=== PATIENT | male | born 1995 | race Asian ===

== ENCOUNTER 2018-01-07 10:24 | Day surgery (SDC) | payer OTHER, SELFPAY ==
[2018-01-07] VITALS (9 sets, daily range): BP systolic 122–138; BP diastolic 56–69; PULSE 48–75; RESP 14–18; TEMP 35.9–36.5; O2SAT 99–100; BMI 28.5
[2018-01-07] MEDS: Cefazolin 2 GM in 0.9% Normal Saline 100 ML IV (12:18)
--- NOTE | 2018-01-07 12:21 | PCM.OPRPT ---
Report of Operation Date of Procedure: 01/07/18 Pre-Operative Diagnosis: Rupture anterior cruciate ligament left knee Post-Operative Diagnosis: Rupture anterior cruciate ligament left knee Surgery/Procedure Performed:: Arthroscopic assisted anterior cruciate ligament reconstruction using hamstring tendon autograft left knee Description of Surgical Findings:: Complete rupture of anterior cruciate ligament title i paraprofessional: Harshil Rizzo title i paraprofessional: Shimon Parry Type of Anesthesia:: Spinal Anesthesiologist: Katya Grant Specimen's removed: none Estimated Blood Loss (mL): 25 Fluids Replaced: See anesthesia report Description of Procedure: Implants: Arthrex tight rope for femoral fixation, sheath an 8 mm screw for tibial fixation, 8 mm tibial and femoral tunnels Surgical indications: 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 This was confirmed via MRI. He is here today for elective reconstruction as above Procedure description: Patient was greeted in the preoperative area. Left knee was marked with a surgical marker. Preoperative antibiotics were administered. Patient was then taken or Suite 2 in a stable condition. After adequate anesthesia was obtained and airway secured the arm was placed in arthroscopic leg nixon with a tourniquet high on the thigh. The leg was then prepped and draped in usual sterile fashion. Standard anteromedial and anterolateral portals were made and diagnostic arthroscopy was performed. The patellofemoral joint was in pristine condition without any abnormalities. No loose bodies or hemarthrosis was identified in the medial or lateral gutters. Medial compartment was then entered which revealed normal pristine articular cartilage as well as normal meniscus without any tearing. The intercondylar notch was then entered which revealed the rupture of the anterior cruciate ligament. Valgus stress was then placed on the knee and the lateral compartment was entered which revealed pristine articular cartilage and normal lateral meniscus. At this point the arthroscope was removed and attention was turned to harvesting the hamstring autograft. A 6 inch Esmarch was used to exsanguinate the limb and tourniquet was inflated to approximately 300 mmHg. Incision was then made overlying the has anserine musculature. Bovie cautery was used to obtain hemostasis. Dissection was then carried down to the sartorial fascia. Sartorial fascia was split exposing the underlying gracilis and semitendinosus tendon attachments. The gracilis was approached first and this was freed up of any adhesions and attachments to the underlying semitendinosus the medial head of the gastrocnemius. Once this was freed up distally [place] drain was used to isolate the tendon and the distal aspect of the tendon was then whipstitched. It was then detached from the tibia. A tendon stripper was then used to carefully release the tendon. This was then taken to the back table by the physician certified pharmacist assistant and prepared for the graft. In similar fashion the semi-tendinosis was approached it was identified and localized distally with a Ada drain and the distal aspect was whipstitched. It was then carefully dissected off of the tibial attachment. Fascial bands were released from the medial head of the gastrocnemius and the tendon strip was then used to harvest the graft. This was also placed on the back table and prepared with the gracilis tendon for the autograft. As the tendon was being repaired for the reconstruction arthroscope was then inserted once again into the knee and a limited notchplasty was performed. Once the graft size was obtained a femoral guide was then placed to the anterolateral portal and placed at the anatomic footprint of the ACL with anticipated posterior wall of 2-3 mm. The thread cutter was then inserted through this guide 25 mm femoral tunnel was then created. The passing suture was then placed through the femoral tunnel infarct in the anterolateral portal. Tibial guide was then inserted into the anteromedial portal to identify the tibial tunnel placement. This was approximately 8 mm anterior to the PCL. Guidepin was then placed intra-articularly followed by appropriate size acorn reamer to create the tibial tunnel. The shaver was then used to remove any soft tissue surrounding the tunnel. The prepared hamstring was then quadrupled in the passing suture was then retrieved through the tibial tunnel with a ring grasper. The passing suture of the graft passing suture loop was then placed through the that was previously retrieved from the tibial tunnel and the passing suture of the graft was then passed through the tibial tunnel and femoral tunnel out the lateral aspect of the thigh. The tight rope anchor was then flipped on the lateral aspect of the femoral cortex and tension on this tightening suture did pass the graft through the tibial tunnel and seated this quite nicely into the femoral tunnel. Once this was complete soft tissue was removed from the tibial tunnel and attention was then placed in an antegrade fashion tensioning the graft is a dilator was utilized followed by placement of a nitinol wire then a tibial sheath. An interference screw was then placed in the tibial tunnel with excellent purchase. Arthroscopic confirmation of the reconstructed ACL was performed. This was probed to ensure excellent tension was obtained. At this point all instruments were removed the remaining tendons from the graft was trimmed and closure of the wounds was then performed. The assistants were integral in all portions of this procedure including patient positioning preparing the graft assisted with harvesting the graft wound closure and preparing the tunnels - Complications none - Admit VTE Documentation VTE Present on Admission: Yes VTE Mechan Device Prophylaxis: SCD's, Thigh High LONDON Kaur
[2018-01-07] MEDS: Bupiv/Epi 0.5% Mpf 30 ML Vial (12:37)
--- NOTE | 2018-01-07 12:41 | OP.PCM_ITS ---
Report of Operation Date of Procedure: 01/07/18 Pre-Operative Diagnosis: Rupture anterior cruciate ligament left knee Post-Operative Diagnosis: Rupture anterior cruciate ligament left knee Surgery/Procedure Performed:: Arthroscopic assisted anterior cruciate ligament reconstruction using hamstring tendon autograft left knee Description of Surgical Findings:: Complete rupture of anterior cruciate ligament apple sorter: Harshil Rizzo apple sorter: Shimon Parry Type of Anesthesia:: Spinal Anesthesiologist: Katya Grant Specimen's removed: none Estimated Blood Loss (mL): 25 Fluids Replaced: See anesthesia report Description of Procedure: Implants: Arthrex tight rope for femoral fixation, sheath an 8 mm screw for tibial fixation, 8 mm tibial and femoral tunnels Surgical indications: 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 This was confirmed via MRI. He is here today for elective reconstruction as above Procedure description: Patient was greeted in the preoperative area. Left knee was marked with a surgical marker. Preoperative antibiotics were administered. Patient was then taken or Suite 2 in a stable condition. After adequate anesthesia was obtained and airway secured the arm was placed in arthroscopic leg nixon with a tourniquet high on the thigh. The leg was then prepped and draped in usual sterile fashion. Standard anteromedial and anterolateral portals were made and diagnostic arthroscopy was performed. The patellofemoral joint was in pristine condition without any abnormalities. No loose bodies or hemarthrosis was identified in the medial or lateral gutters. Medial compartment was then entered which revealed normal pristine articular cartilage as well as normal meniscus without any tearing. The intercondylar notch was then entered which revealed the rupture of the anterior cruciate ligament. Valgus stress was then placed on the knee and the lateral compartment was entered which revealed pristine articular cartilage and normal lateral meniscus. At this point the arthroscope was removed and attention was turned to harvesting the hamstring autograft. A 6 inch Esmarch was used to exsanguinate the limb and tourniquet was inflated to approximately 300 mmHg. Incision was then made overlying the has anserine musculature. Bovie cautery was used to obtain hemostasis. Dissection was then carried down to the sartorial fascia. Sartorial fascia was split exposing the underlying gracilis and semitendinosus tendon attachments. The gracilis was approached first and this was freed up of any adhesions and attachments to the underlying semitendinosus the medial head of the gastrocnemius. Once this was freed up distally [place] drain was used to isolate the tendon and the distal aspect of the tendon was then whipstitched. It was then detached from the tibia. A tendon stripper was then used to carefully release the tendon. This was then taken to the back table by the physician assistant research scientist and prepared for the graft. In similar fashion the semi-tendinosis was approached it was identified and localized distally with a Ada drain and the distal aspect was whipstitched. It was then carefully dissected off of the tibial attachment. Fascial bands were released from the medial head of the gastrocnemius and the tendon strip was then used to harvest the graft. This was also placed on the back table and prepared with the gracilis tendon for the autograft. As the tendon was being repaired for the reconstruction arthroscope was then inserted once again into the knee and a limited notchplasty was performed. Once the graft size was obtained a femoral guide was then placed to the anterolateral portal and placed at the anatomic footprint of the ACL with anticipated posterior wall of 2-3 mm. The bill cutter was then inserted through this guide 25 mm femoral tunnel was then created. The passing suture was then placed through the femoral tunnel infarct in the anterolateral portal. Tibial guide was then inserted into the anteromedial portal to identify the tibial tunnel placement. This was approximately 8 mm anterior to the PCL. Guidepin was then placed intra-articularly followed by appropriate size acorn reamer to create the tibial tunnel. The shaver was then used to remove any soft tissue surrounding the tunnel. The prepared hamstring was then quadrupled in the passing suture was then retrieved through the tibial tunnel with a ring grasper. The passing suture of the graft passing suture loop was then placed through the that was previously retrieved from the tibial tunnel and the passing suture of the graft was then passed through the tibial tunnel and femoral tunnel out the lateral aspect of the thigh. The tight rope anchor was then flipped on the lateral aspect of the femoral cortex and tension on this tightening suture did pass the graft through the tibial tunnel and seated this quite nicely into the femoral tunnel. Once this was complete soft tissue was removed from the tibial tunnel and attention was then placed in an antegrade fashion tensioning the graft is a dilator was utilized followed by placement of a nitinol wire then a tibial sheath. An interference screw was then placed in the tibial tunnel with excellent purchase. Arthroscopic confirmation of the reconstructed ACL was performed. This was probed to ensure excellent tension was obtained. At this point all instruments were removed the remaining tendons from the graft was trimmed and closure of the wounds was then performed. The assistants were integral in all portions of this procedure including patient positioning preparing the graft assisted with harvesting the graft wound closure and preparing the tunnels - Complications none - Admit VTE Documentation VTE Present on Admission: Yes VTE Mechan Device Prophylaxis: SCD's, Thigh High LONDON Kaur
--- NOTE | 2018-01-07 14:06 | PCM.DC.ORTHO ---
Discharge Diet: No Restrictions Discharge Activity: May Not Drive May shower in (days): 3 Weight Bearing Status: Weight bearing as tolerated - with Brace, use crutches Keep extremity elevated above heart level: Left Leg Call your doctor if your incision/area has: Continuous Slow Oozing, Sudden Increased Bleeding, Increased Pain/ Swelling, Increased Redness, Foul Smelling Discharge Call your doctor if you observe: Fever of 101 or Higher, Coldness, Increased Pain, Numbness or Tingling, Change in Color Remove Dressing in (days):: 3 Cleanse incision/area with: Soap & Water Allergies/Adverse Reactions: Allergies No Known Allergies Allergy (Verified 01/02/18 10:53) Medications to take at Discharge Hydrocodone Bitart/Apap 5-325 [[place] 5/325] 1 - 2 tablet PO Q6H PRN PRN 7 Days #56 tablet 01/07/18 The following prescriptions were given: Hydrocodone Bitart/Apap 5-325 [[place] 5/325] 1 - 2 tablet PO Q6H PRN PRN 7 Days #56 tablet PRN Reason: Mild-Moderate (pain scale 1-5) Please Follow Up With: Iker Muse DO When: 2 weeks
--- NOTE | 2018-01-07 14:12 | DCINST_ITS ---
Discharge Diet: No Restrictions Discharge Activity: May Not Drive May shower in (days): 3 Weight Bearing Status: Weight bearing as tolerated - with Brace, use crutches Keep extremity elevated above heart level: Left Leg Call your doctor if your incision/area has: Continuous Slow Oozing, Sudden Increased Bleeding, Increased Pain/ Swelling, Increased Redness, Foul Smelling Discharge Call your doctor if you observe: Fever of 101 or Higher, Coldness, Increased Pain, Numbness or Tingling, Change in Color Remove Dressing in (days):: 3 Cleanse incision/area with: Soap & Water Allergies/Adverse Reactions: Allergies No Known Allergies Allergy (Verified 01/02/18 10:53) Medications to take at Discharge Hydrocodone Bitart/Apap 5-325 [[place] 5/325] 1 - 2 tablet PO Q6H PRN PRN 7 Days # 56 tablet 01/07/18 The following prescriptions were given: Hydrocodone Bitart/Apap 5-325 [[place] 5/325] 1 - 2 tablet PO Q6H PRN PRN 7 Days # 56 tablet PRN Reason: Mild-Moderate (pain scale 1-5) Please Follow Up With: Iker Muse DO When: 2 weeks
[2018-01-07] MEDS: HYDROcodone Bitartrate/Apap 5/325 Tablet PO (17:39)
== END 2018-01-07 18:52 | disposition home or self-care (01) ==
LOC: SDC 10:30 → AC 10:32
PROVIDERS: Visit Provider Orthopaedic Surgery
PROC: (CPT 29888; principal; 2018-01-07 11:40)
DX: S83.512A Sprain of anterior cruciate ligament of left knee, initial encounter (principal); M25.462 Effusion, left knee; E66.3 Overweight; Z68.28 Body mass index [BMI] 28.0-28.9, adult; X50.1XXA Overexertion from prolonged static or awkward postures, initial encounter; Y93.67 Activity, basketball; Y92.89 Other specified places as the place of occurrence of the external cause; Y99.8 Other external cause status
CPT/HCPCS: 01400; 29888; J7120; J2405